=== PATIENT | male | born 1950 | race Caucasian/White ===

== ENCOUNTER 2016-08-20 12:28 | Emergency (ER) | payer OTHER ==
[2016-08-20 12:54] LABS: Urine Bilirubin 1 mg/dl (NEGATIVE); Urine Blood 250 /ul (NEGATIVE); Urine Ketone 5 mg/dL (NEGATIVE); Urine Nitrite Negative (NEGATIVE); Urine Protein 15 mg/dL (NEGATIVE); Urine Specific Gravity >=1.030 SP.GR. (1.005-1.030); Urine Urobilinogen Normal (NORMAL)
--- NOTE | 2016-08-20 12:54 | ERNOTE ---
Abdominal HPI - Narrative Date of Service: 08/20/16 - General Chief Complaint: Abdominal Pain Source: patient Exam Limitations: no limitations - Immun/Allergies/Home Medications Immunizatons: IMMUNIZATION HX Immunizations Up to Date Yes History of Influenza Vaccine Yes Hx Pneumococcal Vaccination Yes Allergies/Adverse Reactions: Allergies No Known Allergies Allergy (Verified 08/20/16 12:39) Home Medications: HOME MEDICATIONS Amlodipine Besylate/Benazepril [Amlodipine-Benazepril 5-40 mg] 1 each PO DAILY 05/05/16 [Last Taken Unknown] Celecoxib [Celebrex] 200 mg PO DAILY 05/05/16 [Last Taken Unknown] Cholecalciferol (Vitamin D3) [Vitamin D3] 10,000 unit PO DAILY 05/05/16 [Last Taken Unknown] Fluticasone Propionate [Flonase] 2 spray NS DAILY 05/05/16 [Last Taken Unknown] Gluc/Isidro-MSM#2/C/D3/Mukul/Born [Huvikfexhb-Rwhfxjdgynn-NMK Tab] 1 each PO DAILY 05/05/16 [Last Taken Unknown] Metoprolol Succinate 200 mg PO DAILY 05/05/16 [Last Taken Unknown] Oxycodone HCl/Acetaminophen [Oxycodone-Acetaminophen 5-325] 1 each PO Q4H PRN [Last Taken Unknown] Oxymetazoline HCl [Afrin Nasal [place]] 1 inh NS PRN 05/05/16 [Last Taken Unknown] Aspirin [Aspirin EC] 81 mg PO DAILY 08/20/16 [Last Taken Unknown] Ciprofloxacin HCl [Cipro] 500 mg PO BID #14 tab 08/20/16 [Last Taken Unknown] Tamsulosin HCl [Flomax] 0.4 mg PO DAILY@1800 #7 cap.sr.24h 08/20/16 [Last Taken Unknown] - Pain Score Pain Score #1 Pain Score: 7 Abdominal Pain Onset Location: RLQ Pain Radiation: no radiation - History of Present Illness Narrative: 65 year old male with known history of HTN and RLE DVT who presents to the ED today with c/o RLQ starting this morning. States he had similar pain when he was constipated in the past. States had BM this morning with mild relief of pain. Denies NVD, fever or chills. Pain does not radiate. Complains of constant sharp pain RLQ with intermittent stabbing sensations. Denies flatulence or distention. Date (Duration): 08/20/16 Time (Timing): 06:00 Timing: constant Quality: moderate, sharpness, other - constant sharp pain with intermittent stabbing Activities at Onset: sleep Modifying Factors - (Improves): Present: defecating Modifying Factors - (Worsens): Present: movement Associated Symptoms: Absent: headache, back pain, chest pain, neck pain, diaphoresis, diarrhea-gross blood, diarrhea-mucous, fatigue, fever/chills, heartburn, nausea, vomiting, loss of appetite, shortness of breath, swelling/ mass in abdomen Prior Abdominal Problems: Present: none Review of Systems - Review of Systems Constitutional: Absent: recent illness, fever, chills, diaphoresis, weakness, fatigue, weight loss EYE: Present: no symptoms reported ENT: Present: no symptoms reported Respiratory: Present: no symptoms reported. Absent: shortness of breath, cough Cardiology: Present: no symptoms reported. Absent: chest pain, palpitations, syncope Gastrointestinal/Abdominal: Present: abdominal pain. Absent: nausea, vomiting, diarrhea, eating less, drinking less Genitourinary: Present: no symptoms reported. Absent: frequency, pain, dysuria , hematuria Musculoskeletal: Present: no symptoms reported Skin: Present: no symptoms reported. Absent: rash, dryness, lesions - history of psoarasis Neurological: Present: no symptoms reported Endocrine: Present: no symptoms reported Hematologic/Lymphatic: Present: no symptoms reported Psych: Present: no symptoms reported - Patient's Past Medical History Patient History - Medical: Osteoarthritis Patient History - Cardiac/Respiratory: Deep Vein Thrombosis, Hypertension Patient History - Cancer: Skin Patient History - Surgical Procedures: Colonoscopy, Total Knee Replacement, Other Patient History - Other: None - Family History Mother Family History - Medical: , No pertinent hx Family History - Cardiac/Respiratory: CVA/Stroke Father Family History - Medical: , Diabetes Type 2, Glaucoma Family History - Cardiac/Respiratory: CVA/Stroke, Hypertension - Social History Living Situations: spouse Abuse History: No History of abuse Psych History: No pertinent hx Have you smoked in the past 12 months: Yes Do you dip or chew tobacco: No Alcohol Use: rarely Drug Use: other - Immunizations Immunizations Up to Date: Yes Hx Pneumococcal Vaccination: Yes History of Influenza Vaccine: Yes Physical Exam - Physical Exam General Appearance: Present: wd/wn, alert, no apparent distress, cheerful, other - laughing and talking about [place] Eye Exam: Normal inspection: bilateral, PERRL: bilateral Ears, Nose, Throat: Present: hearing decreased - wears hearing aides, normal pharynx. Absent: dry mucous membranes Neck: Present: normal inspection, nontender Respiratory: Present: no respiratory distress, normal breath sounds, no accessory muscle use, chest nontender, lungs clear Cardiovascular/Chest: Present: regular rate, rhythm, no murmur, normal peripheral pulses. Absent: gallop/S3, gallop/S4 Peripheral Pulses: N=norm/S=strong/W=weak/B=bound/A=absent: Radial (R): Normal, Radial (L): Normal Gastrointestinal/Abdominal: Present: normal bowel sounds, nondistended, soft, no organomegaly, tenderness - RLQ only. Absent: distended, guarding, rebound Rectal Exam: Present: deferred. Absent: black stool, blood-streaked stool Male Genitals Exam: Present: deferred Back Exam: Present: normal inspection, normal range of motion, no CVA tenderness , no vertebral tenderness. Absent: CVA tenderness (R), CVA tenderness (L) Extremity Exam: Present: normal inspection, non-tender, normal range of motion, no edema, other - history of DVT RLE s/p Coumadin therapy x 6 months Neurological Exam: Present: alert, oriented, normal mood/affect, no motor/ sensory deficits Skin Exam: Present: normal color, warm/dry Lymphatic Exam: Present: no adenopathy Pelvic Exam: Present: deferred ED Progress - Results and Orders Patient's Lab Results:: I have reviewed the patient's lab results. - Vital Signs Patient's Vital Signs:: I have reviewed the patient's vital signs. Vital Signs: Vital Signs 08/20/16 12:32 Temperature 37.1 C Pulse Rate 55 L Respiratory 15 Rate Blood Pressure 168/86 O2 Sat by Pulse 94 Oximetry - X-Ray X-Ray #1 X-Ray: abdomen Interpretation: Reviewed by me X-ray Comments: per Dr Phelan: nonspecific bowel gas pattern - CT/Ultrasound CT/Ultrasound Narrative: Mild right sided hydronephrosis extending down to a 3 mm calculus in the right ureterovesicular junction. - Progress/Reassessment Chief Complaint: Abdominal Pain Progress Note-Subjective: 08/20/16 13:01 Discussed pain medication options with patient. Offered Tylenol or Ibuprofen. Patient declined medications at this time, telling staff that he will alert us when he feels like he needs help controlling the pain. 08/20/16 13:56 Continues to rest quietly without vomiting. Continues to decline oral pain medications. Drinking oral contrast without difficulty Departure - Departure Clinical Impression: Renal calculus or stone Constipation Qualifiers: Constipation type: unspecified constipation type Qualified Code(s): K59.00 - Constipation, unspecified Disposition: Home Follow Up Needed Condition: Good Instructions: Renal Colic, Dvzl-[id number], Kidney Stones, [id number] Additional Instructions: Use strainer with each void. If stone present, place in plastic bag and place in refrigerator until follow up with physician. Take medications as directed. Complete entire course of antibiotics. Return to ED for worsening pain, SOB or any other concerning symptoms. Please call your physician for follow up. Go [place]! Referrals: Shaheed Flor MD [Primary Care Provider] - Prescriptions: Ciprofloxacin HCl [Cipro] 500 mg PO BID #14 tab Tamsulosin HCl [Flomax] 0.4 mg PO DAILY@1800 #7 cap.sr.24h
--- OUTSIDE RECORDS SUMMARY | 2016-08-20 12:57 | XMS REPORT | Continuity of Care Document ---
:1950 Author Organization [facility] ([facility]) Address [address] [place] [address] Phone [phone] Care Team Providers Name Role Phone Shaheed Rivas Primary Care Provider [phone] Source Comments This disclosure is being made pursuant to the Care Everywhere program, applicable federal and state laws, and may not contain all informaitonavailable regarding this patient.[facility] ([facility]) Active Allergies and Adverse Reactions No Known Allergies Current Medications Prescription Sig. Disp. Refills Start Date End Date Status amLODIPine-benazepril Take 1 capsule by 09/14/2015 Active 10-40 mg per capsule mouth daily. celecoxib 200 mg Take 200 mg by mouth 11/11/2015 Active capsule daily. fluticasone 50 Use 2 Sprays into 10/14/2015 Active mcg/Actuation nasal both nostrils as spray needed. ketoconazole 2 % 10/13/2015 Active shampoo metoPROLol succinate Take 200 mg by mouth 09/13/2015 Active 200 mg XL tablet daily. montelukast 10 mg Take 10 mg by mouth 10/14/2015 Active tablet every evening. warfarin 5 mg tablet Take 5 mg by mouth Active daily. warfarin 4 mg tablet Take 4 mg by mouth Active daily. Wednesdays vitamin A PO Take 1,000 mg by Active mouth daily. GLUC/CHND/OM3/DHA/EPA/F Active KRISTY/STR (GLUCOSAMINE CHONDROITIN PLUS PO) Active Problems Problem Noted Date DVT (deep venous thrombosis) Hypertension Obesity (BMI 30-39.9) Social History Tobacco Use Types Packs/Day Years Used Date Light Tobacco Smoker Cigars Tobacco Cessation:Ready to Quit: No; Counseling Given: Yes Comments: Alcohol Use Drinks/Week oz/Week Comments No Last Filed Vital Signs Vital Sign Reading Time Taken Blood Pressure 139/82 11/23/2015 8:18 AM CDT Pulse 48 11/23/2015 8:18 AM CDT Temperature - - Respiratory Rate - - Height 1.829 m (6') 11/23/2015 8:18 AM CDT Weight 122.6 kg (270 lb 4.5 oz) 11/23/2015 8:18 AM CDT Body Mass Index 36.65 11/23/2015 8:18 AM CDT Oxygen Saturation - - Plan of Care Health Maintenance Due Date Last Done Comments HCV Screening 1950 Hepatitis B Vaccine (1 of 3 - Primary Series) 1950 Tdap Vaccine 09/27/1959 Lipid Disorder Screening 1966 Td Vaccine 1966 Colonoscopy 1998 Prostate Cancer Screening 1998 Zoster Vaccine 2008 Pneumococcal Vaccine (1 of 2 - PCV13) 2013 Influenza Vaccine: Seasonal (#1) 01/03/2016 Results from Last 3 Months Not on file
[2016-08-20 13:04] LABS: Urine Appearance Slightly Cloudy; Urine Bacteria None Seen; Urine Color Dark Yellow; Urine RBC >50 /hpf (0-5); Urine WBC 0-5 /hpf (0-5)
[2016-08-20 13:07] LABS: Hematocrit 42.7 % (42.0-52.0); Hemoglobin 14.5 gm/dL (13.5-18.0); Mean Cell Volume 92.4 fl (78-100); Mean Corpuscular Hemoglobin 31.4 pg (27-31); Mean Platelet Volume 9.5 fl (6.0-9.5); Neutrophil % 78.3 % (42-75.0); Platelet Count 248 K/mm3 (150-450); Red Blood Count 4.62 M/mm3 (4.7-6.0); Red Cell Distribution Width 13.1 % (11.5-14.0); White Blood Count 17.9 K/mm3 (4.0-10.5)
[2016-08-20 13:08] LABS: Total Cells Counted 100
[2016-08-20 13:16] LABS: Eosinophil 1 % (0-3); Lymphocyte 10 % (20-51); Monocyte 4 % (0-9); Neutrophil 85 % (42-75); Neutrophil # 15.2 K/mm3 (1.3-6.0)
[2016-08-20 13:17] LABS: Platelet Estimate Normal (NORMAL); RBC Morphology Normal (NORMAL)
[2016-08-20] MEDS ORDERED: DIATRIZOATE MEGLU/DIATRIZO SOD 30 ML BTL PO ONE (13:18)
[2016-08-20] MEDS ORDERED: DIATRIZOATE MEGLU/DIATRIZO SOD 30 ML BTL ONE (13:21)
[2016-08-20 13:22] LABS: Albumin * 3.7 gm/dl (3.4-5.0); Anion Gap 10.6 mmol/L (6.8-13.8); BUN/Creatinine Ratio 21.1 (9.0-21.6); Bilirubin, Total 0.3 mg/dL (0.0-1.1); Ca. Corrected For Albumin 9.2 mg/dL (8.4-10.2); Calcium * 9.3 mg/dL (7.9-10.9); Carbon Dioxide 30.3 mmol/L (24-32.6); Potassium 3.9 mmol/L (3.4-4.6); Total Protein 7.3 gm/dL (6.2-8.2)
[2016-08-20] MEDS ORDERED: CIPROFLOXACIN HCL 250 MG TABLET PO ONE (15:50)
[2016-08-20] MEDS ORDERED: TAMSULOSIN HCL 0.4 MG CAP.SR.24H PO ONE ×2 (15:51→15:54)
[2016-08-20] MEDS ORDERED: CIPROFLOXACIN HCL 250 MG TABLET ONE (15:54)
[2016-08-20 16:10] VITALS: BP 147/66
== END 2016-08-20 16:07 | disposition home or self-care (01) ==
LOC: ER 12:28
DX: N20.0 Calculus of kidney (principal); K59.00 Constipation, unspecified; Z72.0 Tobacco use; I10 Essential (primary) hypertension; M19.90 Unspecified osteoarthritis, unspecified site

== ENCOUNTER 2017-01-11 19:49 | Emergency (ER) | payer OTHER ==
[2017-01-11] MEDS ORDERED: DIPHTH,PERTUSS(ACELL),TET VAC 0.5 ML VIAL IM ONE ×2 (20:09→20:15)
--- NOTE | 2017-01-11 20:31 | ERNOTE ---
Upper Extremity HPI - Narrative Date of Service: 01/11/17 - General Extremities Pain Location: hand: left Time Seen by Provider: 01/11/17 19:51 Source: patient Exam Limitations: no limitations - Immun/Allergies/Home Medications Immunizations: IMMUNIZATION HX Immunizations Up to Date Yes History of Influenza Vaccine Yes Hx Pneumococcal Vaccination Yes Allergies/Adverse Reactions: Allergies Allergy/AdvReac Type Severity Reaction Status Date / Time No Known Allergies Allergy Verified 01/11/17 19:57 Home Medications: HOME MEDICATIONS Amlodipine Besylate/Benazepril [Amlodipine-Benazepril 5-40 mg] 1 each PO DAILY 05/05/16 [Last Taken Unknown] Celecoxib [Celebrex] 200 mg PO DAILY 05/05/16 [Last Taken Unknown] Fluticasone Propionate [Flonase] 2 spray NS DAILY 05/05/16 [Last Taken Unknown] Gluc/Isidro-MSM#2/C/D3/[place]ul/Born [Lueundyvec-Iotmdgdinso-BTW Tab] 1 each PO DAILY 05/05/16 [Last Taken Unknown] Metoprolol Succinate 200 mg PO DAILY 05/05/16 [Last Taken Unknown] Oxymetazoline HCl [Afrin Nasal [place]] 1 inh NS PRN 05/05/16 [Last Taken Unknown] - History of Present Illness Narrative: Pt. comes in with c/o L carreon puncture wound that he got from the tip of a knife while he was cutting string from his vacuum just prior to arrival. Pt. denies any numbness tingling, SOB, CP, and can't remember when he last had a tetanus vaccine. Review of Systems - Review of Systems Constitutional: Present: no symptoms reported. Absent: recent illness, fever, chills, weakness, fatigue EYE: Present: no symptoms reported ENT: Present: no symptoms reported Respiratory: Present: no symptoms reported. Absent: shortness of breath, cough Cardiology: Present: no symptoms reported. Absent: chest pain, palpitations, edema Gastrointestinal/Abdominal: Present: no symptoms reported. Absent: nausea, vomiting, diarrhea Genitourinary: Present: no symptoms reported Musculoskeletal: Present: no symptoms reported. Absent: back pain, joint pain Skin: Present: other - puncture wound L palmar hand prox to thumb Neurological: Present: no symptoms reported. Absent: headache, dizziness/light- headedness, numbness, tingling All Other Systems: All systems neg except as marked - Patient's Past Medical History Patient History - Medical: Osteoarthritis Patient History - Cardiac/Respiratory: Deep Vein Thrombosis, Hypertension Patient History - Cancer: Skin Patient History - Surgical Procedures: Colonoscopy, Total Knee Replacement, Other Patient History - Other: None - Family History Mother Family History - Medical: , No pertinent hx Family History - Cardiac/Respiratory: CVA/Stroke Father Family History - Medical: , Diabetes Type 2, Glaucoma Family History - Cardiac/Respiratory: CVA/Stroke, Hypertension - Social History Living Situations: home Abuse History: No History of abuse Psych History: No pertinent hx Smoking Status: Never smoker Alcohol Use: rarely Drug Use: none, other - Immunizations Immunizations Up to Date: Yes Hx Pneumococcal Vaccination: Yes History of Influenza Vaccine: Yes Physical Exam - Physical Exam General Appearance: Present: wd/wn, alert, no apparent distress Head Exam: Present: normal inspection, no evidence of injury Eye Exam: Normal inspection: bilateral, PERRL: bilateral, EOMI: bilateral Respiratory: Present: no respiratory distress, normal breath sounds, no accessory muscle use, chest nontender, lungs clear Cardiovascular/Chest: Present: regular rate, rhythm, no murmur, normal peripheral pulses Extremity Exam: Present: normal range of motion, no edema, bony tenderness - proximal thumb just proximal to puncture wound that measures 0.1cm x 0.3cm Neurological Exam: Present: alert, oriented, normal mood/affect, no motor/ sensory deficits Skin Exam: Present: normal color, warm/dry, other - puncture wound that measures 0.1cm x 0.3cm L volar prox thumb ED Progress - Date and Time Seen: Date and Time: 01/11/17 20:22 although puncture wound is too small to suture will close with surgiglue as pt. uses his hands frequently and it is still oozing blood despite pressure being held for 20 minutes prior to arrival and butterfly bandage. - Vital Signs Patient's Vital Signs:: I have reviewed the patient's vital signs. Vital Signs: Vital Signs 01/11/17 19:50 Temperature 36.7 C Pulse Rate 64 Respiratory 16 Rate Blood Pressure 116/80 O2 Sat by Pulse 95 Oximetry - X-Ray X-Ray #1 X-Ray: hand Interpretation: Interp. by me X-ray Comments: no acute ossious abnormality or foreign body - Progress/Reassessment Chief Complaint: Hand Injury/Pain Procedures Left Volar Hand 1st Digit I & D Prep: betadine prep Length of Repair/Wound (cm): 0.3 Wound's Depth/Shape: other - deep puncture Wound Explored: clean Wound Intervention: irrigated w/saline Distal NVT: neuro/vasc intact, no tendon injury Wound Repaired With: Dermabond, Steri-strips Complications: Pt stormy procedure well Departure Clinical Impression: Puncture wound - Departure Disposition: Home self-care Condition: Good Instructions: Puncture Wound, [id number] Additional Instructions: Please follow up with primary provider in 2-3 days if no improvement. Keep wound dry for 5 days may use glove to help with this. Referrals: Shaheed Flor MD [Primary Care Provider] -
[2017-01-12 16:32] VITALS: BP 154/74
== END 2017-01-11 20:38 | disposition home or self-care (01) ==
LOC: ER 19:49
PROC: 0JQK0ZZ Repair Left Hand Subcutaneous Tissue and Fascia, Open Approach (ICD-10-PCS; principal; 2017-01-11)
DX: S61.432A Puncture wound without foreign body of left hand, initial encounter (principal); W26.0XXA Contact with knife, initial encounter; Y93.H9 Activity, other involving exterior property and land maintenance, building and construction; Y92.009 Unspecified place in unspecified non-institutional (private) residence as the place of occurrence of the external cause; Z23 Encounter for immunization